=== PATIENT | male | born 1960 | race American Indian/Alaskan Native ===

== ENCOUNTER 2016-08-14 09:35 | Emergency (ER) | payer SELFPAY | END 2016-08-14 11:20 | disposition left against medical advice (07) | LOC: ED 09:35 | DX: R10.9 Unspecified abdominal pain (principal); Z53.21 Procedure and treatment not carried out due to patient leaving prior to being seen by health care provider ==

== ENCOUNTER 2019-06-22 16:11 | Emergency (ER) | payer MEDICARE ==
[2019-06-22] MEDS ORDERED: ONDANSETRON 4 MG/2 ML INJ IV ONE ×2 (16:23→18:40)
[2019-06-22] MEDS ORDERED: SODIUM CHLORIDE 0.9% 1000 ML 1,000 ML IV ONE ×2 (16:23→18:40)
[2019-06-22] MEDS ORDERED: FAMOTIDINE 20 MG/2 ML INJ IV ONE (16:23)
--- NOTE | 2019-06-22 16:24 | Event Note ---
ED Screening Note Date of service: 06/22/19 Time: 16:22 ED Screening Note: 58 y o male presents with right sided abd pain with vomitting This initial assessment/diagnostic orders/clinical plan/treatment(s) is/are subject to change based on patients health status, clinical progression and re-assessment by fellow clinical providers in the ED. Further treatment and workup at subsequent clinical providers discretion. Patient/guardian urged not to elope from the ED as their condition may be serious if not clinically assessed and managed. Initial orders include: labs ct abd main side eval
[2019-06-22] MEDS ORDERED: MORPHINE 2 MG/1 ML INJ IV ONE ×2 (16:25→18:40)
[2019-06-22 17:18] LABS: Hematocrit 47.1 % (35.5-45.6); Hemoglobin 15.6 gm/dl (11.8-15.2); Lymphocytes # (Auto) 0.5 K/mm3 (1.2-5.4); Mean Corpuscular HGB Conc 33 % (32-34); Mean Corpuscular Volume 90 fl (84-94); Monocytes # (Auto) 0.3 K/mm3 (0.0-0.8); Monocytes % (Auto) 3.6 % (0.0-7.3); Platelet Count 139 K/mm3 (140-440); Red Blood Count 5.23 M/mm3 (3.65-5.03); Red Cell Distribution Width 14.3 % (13.2-15.2)
[2019-06-22 17:43] LABS: Alanine Aminotransferase 21 units/L (7-56); Albumin 4.4 g/dL (3.9-5); BUN/Creatinine Ratio 9; Blood Urea Nitrogen 7 mg/dL (9-20); Calcium 8.8 mg/dL (8.4-10.2); Hemolysis Index 31
[2019-06-22 18:40] VITALS: BP 181/84
[2019-06-22] MEDS ORDERED: MORPHINE 4 MG/1 ML INJ ONE (18:49)
--- NOTE | 2019-06-22 18:57 | Emergency Department Report ---
ED Abdominal Pain HPI - General Chief Complaint: Abdominal Pain Stated Complaint: ABD PAIN Time Seen by Provider: 06/22/19 18:24 Source: patient Mode of arrival: Wheelchair Limitations: No Limitations - History of Present Illness Initial Comments: 58-year-old male presents to ED with complaint of abdominal pain since 5 AM. Patient states pain began in the right upper quadrant and radiates throughout his abdomen and to his back. He reports associated nausea vomiting. Patient states he was diagnosed with gallstones sometime last year, states it feels the same as it daily he was first diagnosed. Patient denies any diarrhea or constipation. He denies fever. MD Complaint: abdominal pain -: This morning Location: RUQ Radiation: LLQ, RLQ, epigastric, back Migration to: no migration Severity: moderate Severity scale (0 -10): 10 Quality: sharp Consistency: constant Improves With: nothing Worsens With: nothing Associated Symptoms: nausea, vomiting. denies: diarrhea, fever, constipation, dysuria - Related Data Previous Rx's Medication Instructions Recorded Last Taken Type Ciprofloxacin HCl [Ciprofloxacin 500 mg PO Q12HR #14 tab 04/06/15 Unknown Rx TAB] Promethazine /Codeine 5 ml PO Q6H PRN #120 ml 04/06/15 Unknown Rx [Phenergan/Codeine 6.25-10 mg/5Ml] Dicyclomine [Bentyl] 20 mg PO QID PRN #20 tablet 06/22/19 Unknown Rx Naproxen [Naprosyn] 500 mg PO BID #20 tablet 06/22/19 Unknown Rx Ondansetron [Zofran Odt] 4 mg PO Q8HR PRN #20 tab.rapdis 06/22/19 Unknown Rx traMADoL [Ultram] 50 mg PO Q6HR PRN #7 tablet 06/22/19 Unknown Rx Allergies Allergy/AdvReac Type Severity Reaction Status Date / Time No Known Allergies Allergy Unverified 04/06/15 14:28 ED Review of Systems ROS: Stated complaint: ABD PAIN Other details as noted in HPI Comment: All other systems reviewed and negative Constitutional: denies: chills, fever Gastrointestinal: abdominal pain, nausea, vomiting. denies: diarrhea, constipation ED Past Medical Hx - Past Medical History Previous Medical History?: Yes Hx Hypertension: Yes Additional medical history: Glaucoma - Surgical History Past Surgical History?: Yes Additional Surgical History: eye - Social History Smoking Status: Never Smoker Substance Use Type: None - Medications Home Medications: Home Medications Medication Instructions Recorded Confirmed Last Taken Type Ciprofloxacin HCl [Ciprofloxacin 500 mg PO Q12HR #14 tab 04/06/15 Unknown Rx TAB] Promethazine /Codeine 5 ml PO Q6H PRN #120 ml 04/06/15 Unknown Rx [Phenergan/Codeine 6.25-10 mg/5Ml] Dicyclomine [Bentyl] 20 mg PO QID PRN #20 tablet 06/22/19 Unknown Rx Naproxen [Naprosyn] 500 mg PO BID #20 tablet 06/22/19 Unknown Rx Ondansetron [Zofran Odt] 4 mg PO Q8HR PRN #20 tab.rapdis 06/22/19 Unknown Rx traMADoL [Ultram] 50 mg PO Q6HR PRN #7 tablet 06/22/19 Unknown Rx ED Physical Exam - General Limitations: No Limitations General appearance: alert, in no apparent distress, other (apears uncomfortable) - Head Head exam: Present: atraumatic, normocephalic - Eye Eye exam: Present: normal appearance, EOMI - ENT ENT exam: Present: mucous membranes moist - Neck Neck exam: Present: normal inspection - Respiratory Respiratory exam: Present: normal lung sounds bilaterally. Absent: respiratory distress - Cardiovascular Cardiovascular Exam: Present: regular rate, normal rhythm - GI/Abdominal GI/Abdominal exam: Present: soft, tenderness (moderate tenderness diffusely). Absent: distended - Extremities Exam Extremities exam: Present: normal inspection - Neurological Exam Neurological exam: Present: alert, oriented X3, CN II-XII intact. Absent: motor sensory deficit - Psychiatric Psychiatric exam: Present: normal affect, normal mood - Skin Skin exam: Present: warm, dry, intact, normal color ED Course Vital Signs 06/22/19 06/22/19 16:22 18:39 Temperature 98.3 F Pulse Rate 66 63 Respiratory 20 17 Rate Blood Pressure 179/87 Blood Pressure 181/84 [Left] O2 Sat by Pulse 100 96 Oximetry ED Medical Decision Making - Lab Data Result diagrams: 06/22/19 17:06 06/22/19 17:06 - Radiology Data Radiology results: report reviewed, image reviewed - Medical Decision Making 58-year-old male with right upper quadrant pain since this morning, similar to previous episode of biliary colic. Nausea and vomiting associated. Patient is afebrile. Labs are unremarkable, except for mild hypokalemia. Otherwise, LFTs and lipase are normal. CT scan shows sludge versus small gallstones and intrahepatic bile duct prominence. No other acute findings present. Patient given IV fluids, morphine and Zofran. He is currently feeling much better at this time. He is currently tolerating by mouth. Patient will be discharged at this time with outpatient follow-up for GI and general surgery. Prescriptions will be given. Return precautions given. - Differential Diagnosis cholelithiasis, cholecystitis, bowel obstruction, pancreatitis Critical care attestation.: If time is entered above; I have spent that time in minutes in the direct care of this critically ill patient, excluding procedure time. ED Disposition Clinical Impression: Acute abdominal pain in right upper quadrant Disposition: - TO HOME OR SELFCARE Is pt being admited?: No Condition: Stable Instructions: Biliary Colic (ED), Acute Abdominal Pain (ED) Prescriptions: Dicyclomine [Bentyl] 20 mg PO QID PRN #20 tablet PRN Reason: abdominal pain Naproxen [Naprosyn] 500 mg PO BID #20 tablet traMADoL [Ultram] 50 mg PO Q6HR PRN #7 tablet PRN Reason: Pain Ondansetron [Zofran Odt] 4 mg PO Q8HR PRN #20 tab.rapdis PRN Reason: Vomiting Referrals: HALEY MONTGOMERY MD [Primary Care Provider] - 3-5 Days [facility] [Provider Group] - 3-5 Days MARIA FERNANDA GRIGGS MD [Staff Physician] - 3-5 Days Forms: Work/School Release Form(ED) Time of Disposition: 20:13
[2019-06-22 19:00] LABS: Bilirubin,Urine NEG (Negative); Blood,Urine SM (Negative); Color,Urine Straw (Yellow); Protein,Urine <15 mg/dL mg/dL (Negative); Urobilinogen,Urine < 2.0 mg/dL (<2.0)
[2019-06-22 19:02] LABS: WBC,Urine < 1.0 /HPF (0.0-6.0)
--- NOTE | 2019-06-22 19:55 | Cat Scan Report ---
CT abdomen pelvis w con INDICATION / CLINICAL INFORMATION: MAIN: Abdominal Pain 100ML OMNI 300. TECHNIQUE: All CT scans at this location are performed using CT dose reduction for ALARA by means of automated e xposure control. COMPARISON: None available. FINDINGS: Limited lower thoracic images are negative. ABDOMEN: The gallbladder contains dependent high density material that could represent small stones or sludge. Moderate intrahepatic bile duct dilatation is identified. There is an addition a cystic area that is slightly anterior to the right and left bile duct confluence possibly related to the cystic duct. The extrahepatic bile duct does not appear significantly dilated. No focal hepatic abnormalities are otherwise identified. The spleen and pancreas are normal. Slight prominence of the distal pancreatic duct within the pancre atic head is noted without evidence of mass. A small right renal cyst is present in the interpole region. No other renal abnormalities. No retroperitoneal adenopathy. No small bowel distention. IMPRESSION: 1. Intrahepatic bile duct prominence and cystic change in the region of the ductal confluence. 2. Sludge versus small gallstones. 3. Small amount of nonspecific dependent fluid in the pelvis. Signer Name: Usama Zendejas MD Signed: 06/22/2019 7:50 PM Workstation Name: [id number]
[2019-06-22] MEDS ORDERED: POTASSIUM CHLORIDE ER 20 MEQ TAB PO ONE (20:10)
== END 2019-06-22 20:41 | disposition home or self-care (01) ==
LOC: ED 16:11
DX: R10.11 Right upper quadrant pain (principal); R11.2 Nausea with vomiting, unspecified; I10 Essential (primary) hypertension; Z98.890 Other specified postprocedural states; Z79.899 Other long term (current) drug therapy
CPT/HCPCS: 36415; 74177; 80053; 81001; 83690; 85025; 96361; 96374; 96375; 96376; 99284; J2270; J2405; J7030; Q9967